=== PATIENT | male | born 1970 | race African-American/Black ===

== ENCOUNTER 2021-10-27 18:46 | Inpatient (IN) | payer SELFPAY ==
[2021-10-27] MEDS ORDERED: Sodium Bicarb 50 MEQ/50 ML Abboject 8.4% SYRINGE ONE (18:52)
[2021-10-27] MEDS ORDERED: EPINEPHrine 1 MG/10 ML Abboject SYRINGE ONE (18:52)
[2021-10-27] MEDS ORDERED: Calcium Chloride 1 GM/10 ML Abboject SYRINGE ONE (18:52)
[2021-10-27 19:29] LABS: Actual Bicarbonate (HCO3a) 19.1 mEq/L (22-28); Analyzer IN Cardio ER; Base Excess (BEa) -17.2 mEq/L (-2.0 to +3.0); Calcium, Ionized (arterial) 1.36 mmol/L (1.12-1.30); Carboxyhemoglobin (COHb) 0.6 gm% (0.0-3.0); Hemoglobin (Hb) 13.2 g/dL (14.0-18.0)
[2021-10-27 19:35] LABS: Mean Corpuscular HGB CONC 31.8 g/dL (32.0-36.0); Mean Corpuscular Volume 94.4 fL (78.0-98.0); Mean Platelet Volume 7.9 fL (7.4-10.4); Platelet Count 149 thou/uL (130-400); RBC Distribution Width 13.1 % (11.5-14.5); Red Blood Cell (RBC) Count 4.34 mill/uL (4.70-6.10); White Blood Cell (WBC) Count 9.1 thou/uL (4.8-10.8)
[2021-10-27 19:45] LABS: Bilirubin Negative (Negative); Blood, Urine 1+ (Negative); Clarity Turbid (Clear); Glucose, Urine (Dipstick) Normal (Negative); Ketone, Urine Negative (Negative); Leukocyte Negative Leu/uL (Negative); Nitrite Negative (Negative); Protein, Urine (Dipstick) 300 mg/dL (Neg-Trace); Specific Gravity, Urine 1.024 (1.002-1.036); Squamous Epithelial 0-3 HPF (0-3); Urobilinogen Normal mg/dL (Less than 2); pH, Urine 5.5 (5.0-9.0)
[2021-10-27 19:46] LABS: Amphetamine Not Detected (NotDetected); Barbiturates Screen Not Detected (NotDetected); Benzodiazepine Screen Not Detected (NotDetected); Cocaine Metabolite Screen Not Detected (NotDetected); Methadone Not Detected (NotDetected); Methamphetamine Not Detected (NotDetected); Opiate Screen Not Detected (NotDetected); Oxycodone Screen Not Detected (NotDetected); Phencyclidine (PCP) Not Detected (NotDetected); THC/Cannabinoid Screen Not Detected (NotDetected); Tricyclic Screen Not Detected (NotDetected)
[2021-10-27 19:46] LABS: INR-International Normal Ratio 1.1; Prothrombin Time 13.9 sec (12.0-14.7)
[2021-10-27 19:47] LABS: CO2 Tension 120.5 mmHg (35.0-45.0); O2 Tension (PaO2), arterial 34.5 mmHg (80.0-100.0); pH, Arterial 6.82 (7.35-7.45)
[2021-10-27 19:48] LABS: ALV-art Gradient 527.875 mmHg (0-20)
[2021-10-27 19:49] LABS: Band 7 % (5-11); Lymphocytes 52 % (21-51); MDiff Complete? YES; Monocytes 5 % (0-10); Neutrophil 35 % (42-75); Platelet Morphology Comment Appears Adequate; Polychromasia SLIGHT = 2-3 cells (100X) (0-2/hpf); Reactive Lymphocytes 1 % (0-10)
[2021-10-27 19:51] LABS: Sperm/HPF 2+ HPF (None Seen)
[2021-10-27 19:52] LABS: Bacteria/HPF Rare-Few HPF (None Seen); WBC/HPF 0-3 HPF (0-3)
[2021-10-27 19:55] LABS: Acetaminophen Less than 6.0 mcg/mL (10.0-30.0); Alcohol Less than 10 mg/dL (Less than 10); Salicylate Less than 8.0 mg/dL (15.0-30.0)
[2021-10-27 19:57] LABS: ALT (SGPT) 81 U/L (8-55); AST (SGOT) 147 U/L (5-34); Albumin 2.8 g/dL (3.5-5.0); Alkaline Phosphatase 56 U/L (40-110); Anion Gap 29 mmol/L (10-20); BUN (Urea Nitrogen) 52 mg/dL (8.4-25.7); Bilirubin, Total 0.3 mg/dL (0.2-1.2); Calc. Creatinine Clearance 0 mL/min (70-130); Carbon Dioxide 17 mmol/L (22-29); Chloride 96 mmol/L (98-107); Globulin 3.4 g/dL (2.4-3.5); Glucose 308 mg/dL (70-105); Potassium 3.6 mmol/L (3.5-5.1); Protein, Total 6.2 g/dL (6.0-8.3); Sodium 138 mmol/L (136-145)
[2021-10-27 20:05] LABS: SARS-CoV-2 NAA Rapid Test DETECTED (NotDetected)
[2021-10-27] MEDS ORDERED: EPINEPHrine 4 MG in Dextrose 5% in Water 250 ML IV SCH (20:15)
[2021-10-27 20:19] LABS: CKMB 3.8 ng/mL (0-6.6)
[2021-10-27] MEDS ORDERED: Norepinephrine 8 MG/0.9% NS 250 ML ONE (20:34)
[2021-10-27] MEDS ORDERED: Magnesium 2 GM/50 ML BAG (IN WATER) ONE (20:35)
[2021-10-27 20:59] LABS: Actual Bicarbonate (HCO3a) 21.4 mEq/L (22-28); Analyzer IN Cardio ER; Base Excess (BEa) -9.2 mEq/L (-2.0 to +3.0); Calcium, Ionized (arterial) 1.09 mmol/L (1.12-1.30); Carboxyhemoglobin (COHb) 0.3 gm% (0.0-3.0); Hemoglobin (Hb) 13.9 g/dL (14.0-18.0); Potassium - ABG Lab 3.74 mmol/L (3.70-5.30)
[2021-10-27] MEDS ORDERED: Mannitol 12.5 GM/50 ML SLOW IVP SCH (22:00)
[2021-10-27] MEDS ORDERED: Sodium Bicarbonate 150 MEQ in Dextrose 5% in Water 1,000 ML IV SCH (22:00)
[2021-10-27] MEDS ORDERED: Norepinephrine 16 MG in Dextrose 5% in Water 234 ML IVPB SCH ×2 (22:00)
[2021-10-27] MEDS ORDERED: cefTRIAXone\\ROCEPHIN 2 GM in Sodium Chloride 0.9% 100 ML IVPB SCH (22:00)
[2021-10-27] MEDS ORDERED: Dexamethasone 10 MG in Sodium Chloride 0.9% 50 ML IVPB SCH (22:00)
[2021-10-27 22:37] LABS: Troponin I 0.232 ng/mL (< 0.028)
[2021-10-27] MEDS: EPINEPHrine 4 MG in Dextrose 5% in Water 250 ML IV SCH (23:10)
[2021-10-27] MEDS ORDERED: DO NOT USE PRE-EXISTING LYTE PROTOCOL FS SCH (23:15)
[2021-10-27] MEDS ORDERED: Fentanyl CADD 100 ML IV SCH (23:15)
[2021-10-27] MEDS ORDERED: Morphine 2 MG/ML VIAL SLOW IVP PRN (23:15)
[2021-10-27] MEDS ORDERED: Fentanyl BOLUS 250 ML IVPB PRN (23:15)
[2021-10-27] MEDS ORDERED: Vecuronium 10 MG VIAL IV PRN (23:15)
[2021-10-27] MEDS ORDERED: Lorazepam 2 MG/ML VIAL SLOW IVP PRN (23:15)
[2021-10-27] MEDS ORDERED: Propofol 1,000 MG/100 ML VIAL IV PRN (23:15)
[2021-10-27] MEDS ORDERED: Propofol BOLUS 1,000 MG/100 ML VIAL IV PRN (23:15)
[2021-10-27] MEDS ORDERED: DISCONTINUE PREVIOUS NARCOTIC PAIN MEDICATIONS AND BENZODIAZEPINES FS SCH (23:15)
[2021-10-27] MEDS ORDERED: Morphine 4 MG/ML VIAL SLOW IVP PRN (23:17)
[2021-10-27 23:21] LABS: Lactic Acid 7.3 mmol/L (0.5-2.2)
[2021-10-27 23:33] LABS: O2 Tension (PaO2), arterial 55.1 mmHg (80.0-100.0); pH, Arterial 7.11 (7.35-7.45)
[2021-10-27 23:34] LABS: Puncture Site RRA
[2021-10-28] MEDS ORDERED: Calcium Gluconate 100 MG/ML 10 ML IVPB SCH (00:30)
[2021-10-28] MEDS ORDERED: Calcium Gluconate 9.2 MEQ in Sodium Chloride 0.9% 100 ML IVPB SCH (00:45)
[2021-10-28 00:56] VITALS: BMI 43.9
[2021-10-28 02:06] LABS: Troponin I 0.675 ng/mL (< 0.028)
[2021-10-28] MEDS: EPINEPHrine 4 MG in Dextrose 5% in Water 250 ML IV SCH ×3 (02:36→10:07)
[2021-10-28 03:50] LABS: INR-International Normal Ratio 1.2; Prothrombin Time 15.1 sec (12.0-14.7)
[2021-10-28 03:59] LABS: ALT (SGPT) 125 U/L (8-55); AST (SGOT) 407 U/L (5-34); Albumin 2.8 g/dL (3.5-5.0); Alkaline Phosphatase 124 U/L (40-110); Anion Gap 27 mmol/L (10-20); BUN (Urea Nitrogen) 57 mg/dL (8.4-25.7); Bilirubin, Total 0.4 mg/dL (0.2-1.2); CRP (Inflammatory) 14.98 mg/dL (= or < 0.5); Calc. Creatinine Clearance 31 mL/min (70-130); Carbon Dioxide 17 mmol/L (22-29); Chloride 93 mmol/L (98-107); Globulin 3.6 g/dL (2.4-3.5); Glucose 538 mg/dL (70-105); Magnesium 2.6 mg/dL (1.6-2.6); Phosphorus 7.5 mg/dL (2.3-4.7); Protein, Total 6.4 g/dL (6.0-8.3); Sodium 134 mmol/L (136-145)
[2021-10-28 04:04] LABS: Potassium 2.9 mmol/L (3.5-5.1)
[2021-10-28 04:10] LABS: CKMB 13.7 ng/mL (0-6.6); Troponin I 0.725 ng/mL (< 0.028)
[2021-10-28 04:35] LABS: Band 21 % (5-11); Hemoglobin 14.6 g/dL (14.0-18.0); Lymphocytes 8 % (21-51); MDiff Complete? YES; Mean Corpuscular Volume 93.6 fL (78.0-98.0); Mean Platelet Volume 7.6 fL (7.4-10.4); Monocytes 2 % (0-10); Myelocyte 4 % (0-0); Neutrophil 65 % (42-75); Platelet Count 173 thou/uL (130-400); Platelet Morphology Comment Appears Adequate; RBC Distribution Width 13.4 % (11.5-14.5); RBC Morphology Normal; Red Blood Cell (RBC) Count 4.88 mill/uL (4.70-6.10); White Blood Cell (WBC) Count 15.2 thou/uL (4.8-10.8)
[2021-10-28] MEDS ORDERED: Lactated Ringer's 1,000 ML IV SCH (05:30)
[2021-10-28] MEDS: Potassium Chloride 10 MEQ in Premix Bag 1 BAG IVPB SCH ×4 (06:22→09:26)
[2021-10-28] MEDS: HumaLOG 300 UNITS/3 ML VIAL SC PRN ×2 (06:42→09:23)
[2021-10-28] MEDS ORDERED: Hydrocortisone Sod Succ/PF 100 mg/2 ml Vial IVP SCH ×2 (08:00→12:00)
[2021-10-28 08:12] LABS: Glucose 656 mg/dL (70-105)
[2021-10-28] MEDS ORDERED: Enoxaparin Sodium 30 MG/0.3 ML SYRINGE SC SCH (09:00)
[2021-10-28] MEDS ORDERED: Famotidine/PF 20 mg/2ml Vial SLOW IVP SCH (09:00)
[2021-10-28] MEDS ORDERED: Zinc Sulfate 220 MG CAP PO SCH (09:00)
[2021-10-28] MEDS ORDERED: Dexamethasone 10 MG in Sodium Chloride 0.9% 50 ML IVPB SCH (09:00)
[2021-10-28 09:08] VITALS: TEMP 90.3
[2021-10-28 10:20] LABS: Hemoglobin 15.2 g/dL (14.0-18.0); Mean Corpuscular HGB CONC 30.3 g/dL (32.0-36.0); Mean Corpuscular Volume 95.7 fL (78.0-98.0); Platelet Count 177 thou/uL (130-400); RBC Distribution Width 13.7 % (11.5-14.5); Red Blood Cell (RBC) Count 5.24 mill/uL (4.70-6.10); White Blood Cell (WBC) Count 17.1 thou/uL (4.8-10.8)
[2021-10-28 10:25] LABS: INR-International Normal Ratio 1.3; Prothrombin Time 16.2 sec (12.0-14.7)
[2021-10-28 10:26] LABS: PTT 44.1 sec (22.9-36.1)
[2021-10-28 10:41] LABS: Anion Gap 30 mmol/L (10-20); BUN (Urea Nitrogen) 58 mg/dL (8.4-25.7); Calc. Creatinine Clearance 28 mL/min (70-130); Calcium 7.8 mg/dL (7.8-10.44); Carbon Dioxide 14 mmol/L (22-29); Chloride 90 mmol/L (98-107); Magnesium 2.5 mg/dL (1.6-2.6); Potassium 3.1 mmol/L (3.5-5.1); Sodium 131 mmol/L (136-145)
[2021-10-28 10:54] LABS: Glucose 722 mg/dL (70-105)
[2021-10-28 10:54] LABS: Actual Bicarbonate (HCO3v) 15 mEq/L (22-28); Base Excess -18.5 mEq/L (-2.0 to +3.0); Calcium, Ionized (venous) 1.06 mmol/L (1.16-1.32); Chloride (VBG) 91 mmol/L (98-106); Hemoglobin (Hb) 15.6 g/dL (13.1-17.2); Potassium (VBG) 3.41 mmol/L (3.70-5.30); Sodium 132.4 mmol/L (133-146)
[2021-10-28 10:55] LABS: CKMB 20.9 ng/mL (0-6.6)
[2021-10-28 11:10] LABS: Band 24 % (5-11); Eosinophils 1 % (0-10); Lymphocytes 8 % (21-51); MDiff Complete? YES; Metamyelocyte 1 % (0-0); Monocytes 4 % (0-10); Neutrophil 60 % (42-75); Platelet Morphology Comment Appears Adequate; Reactive Lymphocytes 2 % (0-10); Vacuoles SLIGHT
[2021-10-28 11:18] LABS: pH (venous) 6.95 (7.32-7.43)
== END 2021-10-28 11:27 | disposition expired | DRG 208 ==
LOC: ERS 18:46 → CCU 20:09
PROVIDERS: ADMIT Internal Medicine; ATTEND Family Medicine
PROC: 5A12012 Performance of Cardiac Output, Single, Manual (ICD-10-PCS; principal; 2021-10-27)
PROC: 5A1935Z Respiratory Ventilation, Less than 24 Consecutive Hours (ICD-10-PCS; 2021-10-27)
PROC: 8E0ZXY6 Isolation (ICD-10-PCS; 2021-10-27)
PROC: 3E0333Z Introduction of Anti-inflammatory into Peripheral Vein, Percutaneous Approach (ICD-10-PCS; 2021-10-27)
PROC: 3E033XZ Introduction of Vasopressor into Peripheral Vein, Percutaneous Approach (ICD-10-PCS; 2021-10-27)
PROC: 06HY33Z Insertion of Infusion Device into Lower Vein, Percutaneous Approach (ICD-10-PCS; 2021-10-27)
DX: U07.1 COVID-19 (principal); J12.82 Pneumonia due to coronavirus disease 2019; E11.11 Type 2 diabetes mellitus with ketoacidosis with coma; J96.02 Acute respiratory failure with hypercapnia; N17.0 Acute kidney failure with tubular necrosis; G93.6 Cerebral edema; J15.9 Unspecified bacterial pneumonia; K72.00 Acute and subacute hepatic failure without coma; G93.1 Anoxic brain damage, not elsewhere classified; G93.40 Encephalopathy, unspecified; I24.8 Other forms of acute ischemic heart disease; Z68.41 Body mass index [BMI] 40.0-44.9, adult; Z66 Do not resuscitate; N18.9 Chronic kidney disease, unspecified; I46.9 Cardiac arrest, cause unspecified; I12.9 Hypertensive chronic kidney disease with stage 1 through stage 4 chronic kidney disease, or unspecified chronic kidney disease; E11.22 Type 2 diabetes mellitus with diabetic chronic kidney disease; E66.9 Obesity, unspecified; R57.8 Other shock; E87.6 Hypokalemia; Z83.3 Family history of diabetes mellitus; Z82.49 Family history of ischemic heart disease and other diseases of the circulatory system; Z87.891 Personal history of nicotine dependence; Z79.84 Long term (current) use of oral hypoglycemic drugs; Z79.4 Long term (current) use of insulin; Z79.899 Other long term (current) drug therapy
CPT/HCPCS: 36415; 36416; 36600; 70450; 71045; 80053; 80306; 80307; 81003; 81015; 82553; 82805; 83605; 83735; 83880; 84100; 84443; 84484; 85025; 85610; 85730; 86140; 87040; 87077; 87086; 93005; 94002; 94003; J0171; J0610; J0696; J1100; J1650; J1720; J1815; J2150; J3475; J3480; J3490; J7070; J7120; S0028; U0002